=== PATIENT | male | born 1930 | race Caucasian/White ===

== ENCOUNTER 2016-09-25 10:07 | Day surgery (SDC) | payer MEDICARE, OTHER ==
[~2016-09-25] VITALS: Ht 165.1 cm; Wt 58.2 kg
[~2016-09-25 10:07] MED LIST: AMIO200T44 PO; AMLO-511 PO; FentaNYL CITRATE-PF 100 MCG/2 ML VIAL IVP ONE; LOSA25TA21 PO; MIDAZOLAM HCL 2 MG/2 ML VIAL IVP ONE; RANO500T3 PO; RIVA15T PO
[2016-09-25] MEDS ORDERED: CYCLOPENTOLATE HCL 2% 2 ML OPHTHALMIC SOLUTION ONE (10:14)
[2016-09-25] MEDS ORDERED: DICLOFENAC SODIUM 0.1% 2.5 ML OPHTHALMIC SOLUTION ONE (10:14)
[2016-09-25] MEDS ORDERED: PHENYLEPHRINE HCL 2.5% 2 ML OPHTHALMIC SOLUTION ONE (10:15)
[2016-09-25] MEDS ORDERED: GATIFLOXACIN 0.5% 2.5 ML OPHTHALMIC SOLUTION ONE (10:15)
[2016-09-25] MEDS ORDERED: RINGERS SOLUTION,LACTATED 500 ML IV ONE ×2 (10:15→10:30)
[2016-09-25] MEDS ORDERED: TETRACAINE HCL 0.5% 2 ML OPHTHALMIC SOLUTION ONE (10:15)
[2016-09-25] MEDS: CYCLOPENTOLATE HCL 2% 2 ML OPHTHALMIC SOLUTION OD SCH ×3 (10:43→10:52)
[2016-09-25] MEDS: DICLOFENAC SODIUM 0.1% 2.5 ML OPHTHALMIC SOLUTION OD SCH ×3 (10:43→11:03)
[2016-09-25] MEDS: GATIFLOXACIN 0.5% 2.5 ML OPHTHALMIC SOLUTION OD SCH ×3 (10:46→11:03)
[2016-09-25] MEDS: PHENYLEPHRINE HCL 2.5% 2 ML OPHTHALMIC SOLUTION OD SCH ×3 (10:48→10:57)
[2016-09-25] MEDS ORDERED: EPINEPHrine 1:1,000 [1 MG/ML] AMP IM ONE (12:00)
[2016-09-25] MEDS ORDERED: ACETAMINOPHEN 325 MG TABLET PO PRN (12:00)
[2016-09-25] MEDS ORDERED: AcetaZOLAMIDE 250 MG TABLET PO ONE (12:00)
[2016-09-25] MEDS ORDERED: TETRACAINE HCL 0.5% 2 ML OPHTHALMIC SOLUTION OD ONE ×2 (12:00)
[2016-09-25] MEDS ORDERED: HYALURONATE SODIUM 12 MG/ML 0.8 ML SYRINGE IO ONE (12:00)
[2016-09-25] MEDS ORDERED: POVIDONE-IODINE 10% 15 ML SOLUTION UD TP ONE (12:00)
[2016-09-25] MEDS ORDERED: TETRACAINE HCL VISCOUS 0.5% 0.6 ML OPHTHALMIC SOLUTION OD ONE (12:00)
[2016-09-25] MEDS ORDERED: HYALURONATE SOD/CHONDROITIN SOD 0.5 ML VIAL IO ONE (12:00)
[2016-09-25] MEDS ORDERED: LIDOCAINE HCL/PF 1% 2 ML VIAL INJ ONE (12:00)
[2016-09-25] MEDS ORDERED: AcetaZOLAMIDE 250 MG TABLET ONE (12:18)
== END 2016-09-25 12:55 | disposition home or self-care (01) ==
LOC: SURGERY 10:07
PROVIDERS: ATTEND Ophthalmology
DX: H26.9 Unspecified cataract (principal); I10 Essential (primary) hypertension; I49.9 Cardiac arrhythmia, unspecified
CPT/HCPCS: 66984; 93005; C1780; J2250; J3010; J7120; J0171; J3490

== ENCOUNTER 2017-01-22 09:34 | Day surgery (SDC) | payer MEDICARE, OTHER ==
[~2017-01-22] VITALS: Ht 162.6 cm; Wt 60.0 kg
[~2017-01-22 09:34] MED LIST changes: -AMIO200T44 PO; +ATOR40TA28 PO; -FentaNYL CITRATE-PF 100 MCG/2 ML VIAL IVP ONE; +METO25 PO; -MIDAZOLAM HCL 2 MG/2 ML VIAL IVP ONE
[2017-01-22] MEDS ORDERED: DICLOFENAC SODIUM 0.1% 2.5 ML OPHTHALMIC SOLUTION ONE (09:46)
[2017-01-22] MEDS ORDERED: PHENYLEPHRINE HCL 2.5% 2 ML OPHTHALMIC SOLUTION ONE (09:46)
[2017-01-22] MEDS ORDERED: TETRACAINE HCL/PF 0.5% 4 ML OPHTHALMIC SOLUTION ONE (09:46)
[2017-01-22] MEDS ORDERED: CYCLOPENTOLATE HCL 2% 2 ML OPHTHALMIC SOLUTION ONE (09:46)
[2017-01-22] MEDS ORDERED: MOXIFLOXACIN HCL 0.5% 3 ML OPHTHALMIC SOLUTION ONE (09:46)
[2017-01-22] MEDS ORDERED: RINGERS SOLUTION,LACTATED 500 ML IV ONE ×2 (09:47→11:15)
[2017-01-22] MEDS ORDERED: LIDOCAINE HCL/PF 1% 2 ML VIAL IM ONE (10:00)
[2017-01-22] MEDS ORDERED: POVIDONE-IODINE 10% 15 ML SOLUTION UD TP ONE (10:00)
[2017-01-22] MEDS ORDERED: TETRACAINE HCL VISCOUS 0.5% 5 ML OPHTHALMIC SOLUTION OU ONE (10:00)
[2017-01-22] MEDS ORDERED: HYALURONATE SODIUM 12 MG/ML 0.8 ML SYRINGE IO ONE (10:00)
[2017-01-22] MEDS ORDERED: TETRACAINE HCL/PF 0.5% 4 ML OPHTHALMIC SOLUTION OU ONE (10:00)
[2017-01-22] MEDS ORDERED: HYALURONATE SOD/CHONDROITIN SOD 0.5 ML VIAL IO ONE (10:00)
[2017-01-22] MEDS ORDERED: EPINEPHrine 1:1,000 [1 MG/ML] AMP IM ONE (10:00)
[2017-01-22] MEDS ORDERED: BRIMONIDINE TARTRATE 0.15% 5 ML OPHTHALMIC SOLUTION OU ONE (10:00)
[2017-01-22] MEDS: CYCLOPENTOLATE HCL 2% 2 ML OPHTHALMIC SOLUTION OS SCH ×3 (10:24→10:35)
[2017-01-22] MEDS: MOXIFLOXACIN HCL 0.5% 3 ML OPHTHALMIC SOLUTION OS SCH ×3 (10:25→10:45)
[2017-01-22] MEDS: PHENYLEPHRINE HCL 2.5% 2 ML OPHTHALMIC SOLUTION OS SCH ×3 (10:25→10:35)
[2017-01-22] MEDS: DICLOFENAC SODIUM 0.1% 2.5 ML OPHTHALMIC SOLUTION OS SCH ×3 (10:25→10:45)
[2017-01-22] MEDS ORDERED: AcetaZOLAMIDE 250 MG TABLET PO ONE (11:15)
[2017-01-22] MEDS ORDERED: ACETAMINOPHEN/CODEINE 300-30 MG TABLET PO PRN (11:15)
[2017-01-22] MEDS ORDERED: TETRACAINE HCL/PF 0.5% 4 ML OPHTHALMIC SOLUTION OS ONE (11:15)
[2017-01-22] MEDS ORDERED: MIDAZOLAM HCL 2 MG/2 ML VIAL IVP ONE (12:00)
[2017-01-22] MEDS ORDERED: FentaNYL CITRATE-PF 100 MCG/2 ML VIAL IVP ONE (12:00)
[2017-01-22] MEDS ORDERED: AcetaZOLAMIDE 250 MG TABLET ONE (12:22)
== END 2017-01-22 13:00 | disposition home or self-care (01) ==
LOC: SURGERY 09:34
PROVIDERS: ATTEND Ophthalmology
DX: H25.12 Age-related nuclear cataract, left eye (principal); I10 Essential (primary) hypertension; Z98.41 Cataract extraction status, right eye
CPT/HCPCS: 66984; C1780; J2250; J3010; J7120; J0171; J3490